=== PATIENT | male | born 1970 ===

== ENCOUNTER 2019-03-29 07:54 | Day surgery (SDC) | payer MEDICARE ==
[~2019-03-29] VITALS: Ht 172.7 cm; Wt 89.4 kg
[~2019-03-29 07:54] MED LIST: FLOMAX0.4 MG PO
[2019-03-29 08:53] VITALS: BP 145/82; Ht 172.7 cm; Wt 89.4 kg
[2019-03-29] MEDS ORDERED: HYDROCODON-ACE1 EAC7 PO (12:43)
--- NOTE | 2019-03-29 13:41 | NUR ---
VOIDED 300 CC OF CLEAR YELLOW URINE ON URINAL @1330
--- NOTE | 2019-03-29 15:03 | NUR ---
PT DC INSTRUCTIONS REVIEWED AT THIS TIME, PT VERBALIZES UNDERSTANDING. PT IV REMOVED AT THIS TIME, INTACT, NO REDNESS OR SWELLING NOTED AT SITE.
--- NOTE | 2019-03-29 15:07 | NUR ---
PT LEAVING OPS SURGERY AT THIS TIME VIA WC. NO DISTRESS NOTED.
== END 2019-03-29 15:07 | disposition home or self-care (01) ==
LOC: D.OPS 07:54 → D.PAN 10:30 → D.OPS 10:30
PROVIDERS: ATTEND Surgery
DX: K43.6 Other and unspecified ventral hernia with obstruction, without gangrene (principal)